=== PATIENT | female | born 1990 | race Two or more races ===

== ENCOUNTER 2017-04-03 13:48 | Emergency (ER) | payer SELFPAY ==
[2017-04-03] MEDS ORDERED: ZIPRASIDONE MESYLATE INJ/PF 20 MG SDV IM ONE (14:09)
--- NOTE | 2017-04-03 14:37 | ER Document Report ---
ED Psych Disorder / Suicide <MARK BRITO - Last Filed: 04/03/17 19:15> <BARB ARDON - Last Filed: 04/04/17 09:59> <SHEEBA GOOD - Last Filed: 04/04/17 12:17> - General Chief Complaint: Psych Problem Stated Complaint: PSYCH EVAL Time Seen by Provider: 04/03/17 14:08 Notes: Patient's boyfriend called EMS to evaluate this patient because of bizarre behavior, talking out of her head, acting very strange and not seeming to understand what is going on around her. We do not have any history on this patient. She has never been to this emergency department before. No historians to provide past history about psychoses or other mental illnesses. EMS called me from the scene and ask what they should do because the patient is obviously not in control of her mental faculties, but was refusing to be transported. I advised them to bring her against her wishes, but alternatively , call law enforcement to bring her in for us to evaluate her condition. I believe the latter was the course taken for this patient. Patient does not answer questions. Does not follow commands. Making unintelligible, unusual sounds or outbursts. Understands when told to take all of her jewelry and is slowly going about doing so. Patient does not answer questions about her medical history. Obviously disconnected from rational thought. (MARK BRITO) - Related Data Allergies/Adverse Reactions: No Known Allergies Allergy (Unverified 04/03/17 18:10) Past Medical History - Social History Smoking Status: Unknown if Ever Smoked Family History: Other - Patient is unable to provide us with any past medical history or family history. - Medical History Medical History: Other - Unable to obtain from the patient and her current condition. Surgical Hx: Other - Unknown <MARK BRITO - Last Filed: 04/03/17 19:15> Review of Systems - Review of Systems -: Yes ROS unobtainable due to patient's medical condition <MARK BRITO - Last Filed: 04/03/17 19:15> Physical Exam - Vital signs Interpretation: Normal <MARK BRITO - Last Filed: 04/03/17 19:15> <BARB ARDON - Last Filed: 04/04/17 09:59> <SHEEBA GOOD - Last Filed: 04/04/17 12:17> - Vital signs Vitals: Temp Pulse BP Pulse Ox 98.3 F 106 H 142/98 H 93 04/03/17 15:53 04/03/17 15:53 04/03/17 15:53 04/03/17 15:53 - Notes Notes: PHYSICAL EXAMINATION: GENERAL: Very anxious and agitated and obviously not able to understand much of what is being said to her. Does attempt to remove jewelry when told to do so. HEAD: Atraumatic, normocephalic. EYES: Pupils equal round and reactive to light, extraocular movements intact. ENT: oropharynx clear without exudates. Moist mucous membranes. NECK: Normal range of motion, supple. LUNGS: Breath sounds clear and equal bilaterally. HEART: Regular rate and rhythm without murmurs. ABDOMEN: Soft, nontender. No guarding or rebound. No masses. BACK: No tenderness throughout entire back. EXTREMITIES: Normal range of motion without pain. NEUROLOGICAL: Abnormal speech, unable to understand. Normal gait. Normal sensory, motor, and reflex exams. Awake, alert, but not oriented x3. PSYCH: Seems to be completely disconnected from what is happening around her. Language is not understandable. SKIN: Warm, dry, no rashes. (MARK BRITO) Course - Laboratory Result Diagrams: 04/03/17 16:10 04/03/17 16:10 <MARK BRITO - Last Filed: 04/03/17 19:15> - Laboratory Result Diagrams: 04/03/17 16:10 04/03/17 16:10 <BARB ARDON - Last Filed: 04/04/17 09:59> - Laboratory Result Diagrams: 04/03/17 16:10 04/03/17 16:10 <SHEEBA GOOD - Last Filed: 04/04/17 12:17> - Re-evaluation Re-evalutation: 04/04/17 12:17 Patient has been reevaluated stable at this time, she is completely alert oriented she understands that she was acting inappropriate yesterday, she states that she always has hallucinations and talks to the stout. She denies any other complaints at this time she has someone who can pick her up and is calling them right now otherwise she appears at her baseline and stable for discharge After performing a Medical Screening Examination, I estimate there is LOW risk for any life threatening mental health issues. At this time the patient looks extremely well and has not attempted severe self harm. I have reevaluated this patient multiple times and no significant life threatening changes are noted. The patient and I have discussed the diagnosis and risks, and we agree with discharging home with close follow-up with the understanding that symptoms and presentations can change. We also discussed returning to the Emergency Department immediately if new or worsening symptoms occur. We have discussed the symptoms which are most concerning (hallucinations, thoughts or actions of self harm or harm to others) that necessitate immediate return. (SHEEBA GOOD) - Vital Signs Vital signs: Temp Pulse Resp BP Pulse Ox 98.3 F 80 133/72 H 93 04/03/17 15:53 04/04/17 05:17 04/04/17 05:17 04/03/17 15:53 - Laboratory Laboratory results interpreted by me: 04/03/17 04/03/17 16:10 16:10 Urine Ketones TRACE H Urine Blood MODERATE H Salicylates < 1.0 L Acetaminophen < 10 L Discharge <MARK BRITO - Last Filed: 04/03/17 19:15> <BARB ARDON - Last Filed: 04/04/17 09:59> <SHEEBA GOOD - Last Filed: 04/04/17 12:17> - Discharge Clinical Impression: Psychosis Qualifiers: Psychosis type: unspecified psychosis type Qualified Code(s): F29 - Unspecified psychosis not due to a substance or known physiological condition Condition: Stable Disposition: HOME, SELF-CARE Additional Instructions: Hallucinations You seem to be having hallucinations. Hallucinations are seeing, hearing, or feeling things that don't exist. These symptoms commonly occur with drug abuse and schizophrenia. Drugs like PCP, LSD, MDMA, peyote, and "psychedelic mushrooms" can cause frightening hallucinations. Users of methamphetamine or crack cocaine often see and feel bugs crawling on their skin. Patients with schizophrenia may hear voices that no one else can hear. The delusions of schizophrenia often involve conspiracies or relationships that are not real. When symptoms are due to drug abuse, the mental state usually improves as the drug wears off. Someone you trust should be with you until you are better, to protect you and calm your fears. Tranquilizer medicine is helpful at controlling hallucinations, anxiety, and deluded thoughts. Get a proper diet and enough sleep. Most patients do very well when they get proper medical treatment and social support. You should return at once if your symptoms get worse, if you are having suicidal thoughts or thoughts about hurting others, or if you feel that you are in danger. Your highly encouraged to engage with outpatient mental health services. You have been provided a resource list of local providers for the area if you choose to change your mind and seek out services.
[2017-04-03] MEDS ORDERED: CHLORPROMAZINE HCL INJ 25 MG/1 ML AMPULE IM PRN (15:07)
--- NOTE | 2017-04-03 15:12 | PSYCHOLOGICAL NOTE ---
Psych Note - Psych Note Psych Note: Reason for consult: Psychosis Consent Permissions: Patient currently unable to provided Patient's boyfriend called EMS to evaluate this patient because of bizarre behavior, talking out of her head, acting very strange and not seeming to understand what is going on around her. EMS called [facility] and spoke to now attending physician from the scene. They ask what they should do because the patient wass obviously not in control of her mental faculties, but was refusing to be transported. they were advised to bring her against her wishes, but alternatively, call law enforcement to bring her in for us to evaluate her condition. Patient is currently in acute psychosis. Patient did create clinician upon walking into room however was unable to differentiate clinician from her other hallucinations. Patient is demonstrating both auditory and visual hallucinations. Patient is carrying on a conversation with multiple people is unable to focus on clinician. Patient is yelling and cussing and is observed to have psychomotor agitation with constant movement. Patient has never been seen at [facility]; history is not known. Medication recommendations per [facility] was contracted psychiatrist, MD Kelly are as follows 1. Thorazine 50 mg IM every 6 as needed 2. Cogentin 1 mg IM daily 298.9 (F29) unspecified psychotic disorder Impression\plan: Patient is recommended for IVC. Patient is currently in acute psychosis in a danger to herself and others. Patient is unable to determine reality versus hallucinations. Dr. Hernández was consulted and the care management as patient; attending physician is agreement with her conditions and disposition.
[2017-04-03] MEDS ORDERED: BENZTROPINE MESYLATE INJ 2 MG/2 ML AMPULE IM SCH (15:15)
[2017-04-03 16:37] LABS: ABSOLUTE BASOPHILS # (AUTO) 0.1 10^3/uL (0.0-0.2); ABSOLUTE EOSINOPHILS # (AUTO) 0.2 10^3/uL (0.0-0.6); ABSOLUTE LYMPHOCYTES (AUTO) 2.1 10^3/uL (0.5-4.7); ABSOLUTE MONOCYTES (AUTO) 0.8 10^3/uL (0.1-1.4); ABSOLUTE NEUT (AUTO) 5.9 10^3/uL (1.7-8.2); BASOPHILS % (AUTO) 0.7 % (0-2); EOSINOPHILS % (AUTO) 2.1 % (0-6); HEMOGLOBIN 14.4 g/dL (12.0-15.5); LYMPHOCYTES % (AUTO) 23.7 % (13-45); MEAN CORPUSCULAR HEMOGLOBIN 31.4 pg (27.0-33.4); MEAN CORPUSCULAR HGB CONC 35.2 g/dL (32.0-36.0); MEAN CORPUSCULAR VOLUME 89 fl (80-97); MONOCYTES % (AUTO) 8.3 % (3-13); PLATELET COUNT 314 10^3/uL (150-450); RED BLOOD COUNT 4.59 10^6/uL (3.72-5.28); RED CELL DISTRIBUTION WIDTH 12.7 % (11.5-14.0); SEGMENTED NEUTROPHILS % (AUTO) 65.2 % (42-78); TOTAL CELLS COUNTED % (AUTO) 100 %
[2017-04-03 16:43] LABS: APPEARANCE,URINE CLEAR; BILIRUBIN,URINE NEGATIVE (NEGATIVE); COLOR,URINE YELLOW; GLUCOSE, URINE NEGATIVE (NEGATIVE); KETONES,URINE TRACE mg/dL (NEGATIVE); LEUKOCYTE ESTERASE,URINE NEGATIVE (NEGATIVE); NITRITE,URINE NEGATIVE (NEGATIVE); PROTEIN,URINE NEGATIVE (NEGATIVE); URINE SPECIFIC GRAVITY 1.006; UROBILINOGEN,URINE NEGATIVE mg/dL (<2.0)
[2017-04-03 16:56] LABS: URINE AMPHETAMINES SCREEN NEGATIVE; URINE BARBITURATES SCREEN NEGATIVE; URINE BENZODIAZEPINES SCREEN NEGATIVE; URINE COCAINE SCREEN NEGATIVE; URINE MARIJUANA (THC) SCREEN NEGATIVE; URINE METHADONE SCREEN NEGATIVE; URINE PHENCYCLIDINE SCREEN NEGATIVE
[2017-04-03 16:59] LABS: ALANINE AMINOTRANSFERASE 23 U/L (9-52); ALBUMIN 4.6 g/dL (3.5-5.0); ALKALINE PHOSPHATASE 56 U/L (38-126); ANION GAP 12 (5-19); ASPARTATE AMINO TRANSFERASE 16 U/L (14-36); BILIRUBIN,DIRECT 0.3 mg/dL (0.0-0.4); BILIRUBIN,TOTAL 0.7 mg/dL (0.2-1.3); BLOOD UREA NITROGEN 10 mg/dL (7-20); CALCIUM 10.1 mg/dL (8.4-10.2); CARBON DIOXIDE 25 mmol/L (22-30); CHLORIDE 105 mmol/L (98-107); GLUCOSE 81 mg/dL (75-110); SODIUM 142.4 mmol/L (137-145); TOTAL PROTEIN 7.7 g/dL (6.3-8.2)
[2017-04-03 17:07] LABS: ACETAMINOPHEN < 10 ug/mL (10-30); ALCOHOL < 10 mg/dL (NONE DETECTED); SALICYLATE < 1.0 mg/dL (2.0-20.0)
--- NOTE | 2017-04-03 19:52 | EKG REPORT ---
SEVERITY:- NORMAL ECG - SINUS RHYTHM : Confirmed by: Dante Olivarez MD 03-Apr-2017 19:51:33
--- NOTE | 2017-04-04 09:59 | PSYCHOLOGICAL NOTE ---
Psych Note - Psych Note Psych Note: Clinician notes patient's correct name is Kimmy Montes De Oca- Reason for consult: Psychosis; IVC Consent permissions: none given Patient's boyfriend called EMS to evaluate this patient because of bizarre behavior, talking out of her head, acting very strange and not seeming to understand what is going on around her. Conducted checking with patient: Patient states she is diagnosed with schizophrenia and has not been on medication in a "long time." Patient denies difficulty with hallucinations stating "I only hear voices...slightly." Patient continued to state that she is tired today and believes that her boyfriend called for assistance because she had not been sleeping. Patient disclosed that she used to take Haldol and Cogentin however denies having outpatient mental health services and disclosed that she has no interest in taking medications because they "make me lazy as f *." Patient denies any previous inpatient treatment for mental health. Chart review: 04/01/2016 Spoke with Olga at [facility] CPS intake who states there is a significant history with the patient and their department. She denies any current open cases. History suggests that the patient's children were placed with family members due to her instability, behavior/substance abuse (ETOH, pills, possibly heroin) , and neglect. Worker states it does not appear as though the department did not assume custody and it is unclear if this was when her children were placed with other family members. Worker reports the last CPS report was filed in 2014 for concerns over instability, drug use, and neglect. No further information was available. Reports for similar concerns dated back to 2010. [place] controlled substance report reviewed; under the name Kimmy kirby patient is only received 2 prescriptions for a controlled substance ( tramadol, Tylenol with codeine) within the last 5 years. Clinician looked up alternate ways of spelling patient's last name; no other prescriptions were found. Patient does not have any upcoming court dates in [place] per [facility] court calendars Patient is alert and orientated to person, place, time and circumstance. Mood is euthymic with congruent affect. Patient denies suicidal homicidal ideation. Patient states she only has auditory hallucinations "slightly" clinician notes patient was highly psychotic when initially presented with both visual and auditory hallucinations. Delusions are absent behaviors congruent with an intact reality based presentation i.e. organized and linear thought processes. Eye contact was fair. Conversational speech was within normal rate, tone and prosody. Intellectual abilities appear to be within the average range. Attention and concentration were good. Insight, judgment, impulse control is fair. There are no medication recommendations at that time Diagnosis 298.9 (F29) unspecified psychotic disorder Polysubstance abuse per history provided by [facility] 291.9 (F10.99) unspecified alcohol related disorder 292.9 (F11.99) unspecified opiate related disorder Impression\\plan: Patient is recommended for rescind of IVC and considered psychiatrically clear. Patient no longer is demonstrating psychosis i.e. patient is calm, making fair eye contact, able to carry on a linear and organized conversation. Patient's chart indicate possible substance abuse history dating back to 2010. Patient denies wanting to go to outpatient services for her mental health and states she will not take medication because it makes her "lazy." At this time the patient is slow longer a danger to herself or others and does not meet IVC criteria per [place] 122C. Patient was highly encouraged to follow-up with her mental health services and provided local resource packet if the patient does change her mind in obtaining services. Dr. Hernández was consulted and the care and management of this patient ; attending physician is agreement with recommendations and disposition
[2017-04-04 12:38] VITALS: BP 118/70
== END 2017-04-04 12:55 | disposition home or self-care (01) ==
LOC: EEVIPCON 13:48 → ER 13:48
DX: F29 Unspecified psychosis not due to a substance or known physiological condition (principal); F10.99 Alcohol use, unspecified with unspecified alcohol-induced disorder; F11.99 Opioid use, unspecified with unspecified opioid-induced disorder
CPT/HCPCS: 93005; 99285; 96372; 51701; 36415; 80307 ×4; 84703; 85025; 80053; 81001; 93010; J0515; J3486